=== PATIENT | male | born 1960 | race Caucasian/White ===

== ENCOUNTER → 2016-06-21 | Outpatient (REF) | payer OTHER ==
[2016-06-21 11:33] LABS: BASO % 0.7 % (0.0-1.0); EOS # 0.4 K/mm3 (0.0-0.50); EOS % 6.5 % (0.0-3.0); LARGE UNSTAINED CELL # 0.1 K/mm3 (0.0-0.4); LARGE UNSTAINED CELL % 1.4 % (0.0-4.0); LYMPH # 1.7 K/mm3 (1.5-4.5); LYMPH % 24.9 % (24.0-44.0); MEAN CORPUSCULAR HEMOGLOBIN 32.7 pg (27.0-33.0); MEAN CORPUSCULAR HGB CONC 33.5 g/dl (32.0-36.5); MEAN CORPUSCULAR VOLUME 97.6 fl (80.0-96.0); MONO # 0.4 K/mm3 (0.0-0.8); MONO % 5.7 % (0.0-5.0); NEUTROPHILS # 4.1 K/mm3 (1.8-7.7); NEUTROPHILS % 60.8 % (36.0-66.0); PLATELET COUNT, AUTOMATED 357 k/mm3 (150-450); RED CELL DISTRIBUTION WIDTH 12.5 % (11.5-14.5); WHITE BLOOD COUNT 6.7 K/mm3 (4.0-10.0)
[2016-06-21 12:01] LABS: ALBUMIN 3.6 GM/DL (3.2-5.2); ALKALINE PHOSPHATASE 63 U/L (45-117); ALT/SGPT 29 U/L (12-78); ANION GAP 9 MEQ/L (8-16); AST/SGOT 18 U/L (15-37); BLOOD UREA NITROGEN 18 MG/DL (7-18); CALCIUM LEVEL 9.4 MG/DL (8.5-10.1); CARBON DIOXIDE LEVEL 28 MEQ/L (21-32); CHLORIDE LEVEL 104 MEQ/L (98-107); CREATININE FOR GFR 0.92 MG/DL (0.70-1.30); GLOMERULAR FILTRATION RATE > 60.0 (>56); GLUCOSE, FASTING 95 MG/DL (70-105); POTASSIUM SERUM 4.1 MEQ/L (3.5-5.1); SODIUM LEVEL 141 MEQ/L (136-145); TOTAL PROTEIN 6.6 GM/DL (6.4-8.2)
== END ==
LOC: M LABNEURO 10:31
PROVIDERS: ATTEND Psychiatry & Neurology Neurology
DX: G12.21 Amyotrophic lateral sclerosis (principal)

== ENCOUNTER → 2016-08-07 | Outpatient (CLI) | payer BC, OTHER ==
[~2016-08-07] MED LIST: E-Z PAQUE 60% w/v SUSP 355ML BOTTLE As Ordered ONE; VARIBAR NECTAR 40% w/v 240ML SUSP BTL As Ordered ONE; VARIBAR PUDDING 40% w/v 230ML TUBE As Ordered ONE
--- NOTE | 2016-08-08 09:30 | REP ---
Clinical: Dysphasia. History of ALS. Technique: Real time fluoroscopic evaluation in conjunction with speech pathology. Findings: Examination demonstrates abnormal head lifting movement during deglutition which may be better detailed on speech pathologist's report. No evidence for aspiration. Surrounding soft tissues and osseous structures are normal. Total fluoroscopic time 2 minutes 49 seconds . Impression: No evidence for aspiration. Abnormal head lifting movements during deglutition. Signed by Hari Chatman MD 08/08/2016 09:21 A
== END ==
LOC: M ST 10:04
PROVIDERS: ATTEND Obstetrics & Gynecology Hospice and Palliative Medicine
DX: R13.10 Dysphagia, unspecified (principal)

== ENCOUNTER → 2016-10-13 | Day surgery (SDC) | payer MEDICARE, BC, OTHER ==
[~2016-10-13] VITALS: Ht 180.3 cm; Wt 56.2 kg
[~2016-10-13] MED LIST changes: +AMPICILLIN SOD/SULBACTAM SOD 3 GM in D5W MINI-BAG PLUS 100 ML IV ONE; +BUPIVACAINE HCL 0.25% 30 ML VIAL As Ordered ONE; -E-Z PAQUE 60% w/v SUSP 355ML BOTTLE As Ordered ONE; +ETOMIDATE INJ 20MG/10ML VIAL As Ordered ONE; +GLYC1TAB18 PO; +GLYCOPYRROLATE INJ 0.2 MG/ML 2 ML VIAL As Ordered ONE; +KETOROLAC 30 MG/ML VIAL (J1885) As Ordered ONE; +KETOROLAC 30 MG/ML VIAL (J1885) IV PRN; +LABETALOL HCL 100 MG/20 ML VIAL As Ordered ONE; +LIDOCAINE 1% SDV INJ 30 ML VIAL As Ordered ONE; +LIDOCAINE 2% INJ 100 MG/5 ML SDV (FOR ANES.) As Ordered ONE; +LR 1,000 ML IV ONE; +LR 1,000 ML IV SCH; +MIDAZOLAM INJ 2 MG/2 ML VIAL (J2250) As Ordered ONE; +NEOSTIGMINE 1MG/ML 5 ML SYRINGE (J2710) As Ordered ONE; +NORCO, ANEXSIA 5/325MG TABLET (HYDROcodone/ACETAMINOPHEN) PO PRN; +ONDANSETRON 4MG/2ML VIAL (J2405) As Ordered ONE; +ONDANSETRON 4MG/2ML VIAL (J2405) IV PRN; +PERCOCET 5MG/325MG TAB As Ordered ONE; +PERCOCET 5MG/325MG TAB PO PRN; +PERCOCET PO; +PROPOFOL 200 MG/20 ML VIAL As Ordered ONE; +RILU1TAB2 PO; +ROCURONIUM BROMIDE 50 MG/5 ML VIAL As Ordered ONE; +SERT25TA PO; -VARIBAR NECTAR 40% w/v 240ML SUSP BTL As Ordered ONE; -VARIBAR PUDDING 40% w/v 230ML TUBE As Ordered ONE; +fentaNYL 100 MCG/2 ML INJECTION (J3010) As Ordered ONE; +fentaNYL 100 MCG/2 ML INJECTION (J3010) IV PRN
[2016-10-13 13:05] VITALS: BP 127/71
--- NOTE | 2016-11-07 11:27 | RO ---
DATE OF PROCEDURE: 10/13/2016 PREOPERATIVE DIAGNOSES: 1. History of amyotrophic lateral sclerosis (ALS). 2. Dysphagia. POSTOPERATIVE DIAGNOSES: 1. History of amyotrophic lateral sclerosis. 2. Dysphagia. PROCEDURE DONE: Upper GI endoscopy and placement of a TORRES-BARTON button feeding tube. SURGEON: Dr. Royce Veliz SAND CARRIER: Андрей Rucker DO ANESTHESIA: General anesthesia ESTIMATED BLOOD LOSS: 5 mL. COMPLICATIONS: None. DRAINS: None. REMARKS: The patient tolerated the procedure well. DESCRIPTION OF PROCEDURE: Procedure note: Mr. Herring is a 55-year-old gentleman with a fairly advanced diagnosis of ALS having problems eating secondary to dysphagia and suspected to be having some aspiration. He is brought in today for placement of a feeding tube. The patient was given 3 grams of Ancef preoperatively. He was brought to the operating room, laid supine on the table. Compression boots placed for deep venous thrombosis (DVT) prophylaxis. General endotracheal anesthesia started without any complication. His abdomen prepped and draped in the usual sterile fashion. Dr. Rucker performed the upper endoscopy. The visualized portions of the esophagus and the stomach, as well as the pyloric opening, appears within normal limits. No contraindications found on placement of the feeding tube. Using transillumination, the stomach was insufflated, and its location in the upper abdomen located. The area was then infiltrated with local anesthesia using 1% lidocaine. An 18-gauge needle was located and inserted into the stomach, visualized via the endoscope. A guidewire was threaded through in a usual modified Seldinger technique. T fasteners were placed at four positions around the guidewire placement to lift the stomach. This was then secured into the abdomen. We then sequentially dilated the tract of the skin and subcutaneous tissue and the fascia, as well as the stomach opening. The TORRES-BARTON button measuring device was placed, and we measured a tract of 2.5 cm. The appropriate sized TORRES-BARTON button was chosen. The peel-away sheath was then inserted through to the stomach. The TORRES-BARTON button placed into the stomach with a peel-away sheath. Unfortunately, towards the end, when we removed the peel-away sheath, the feeding tube retracted back into the subcutaneous tissue, whereby we lost the tract. There was some release of gas with pneumoperitoneum. We decompressed the abdomen with a Veress needle. Once the abdomen was deflated, we located back the stomach opening and again sequentially dilated the area. A new TORRES-BARTON button was then placed. This time around, we inflated the TORRES-BARTON button after removing the peel-away sheath. Its location to the stomach was confirmed; and likewise, we tested the feeding tube. Noted this to be working adequately. The remnant pneumoperitoneum was again released with the Veress needle. The T fasteners were secured into the abdomen. Dry gauze placed around the TORRES-BARTON button. The patient was then promptly awakened, extubated, brought to the recovery room stable.
== END | disposition home or self-care (01) ==
LOC: M SDC 09:50
PROVIDERS: ATTEND Surgery
DX: G12.21 Amyotrophic lateral sclerosis (principal); R13.10 Dysphagia, unspecified; T88.59XD Other complications of anesthesia, subsequent encounter; R53.1 Weakness; R29.898 Other symptoms and signs involving the musculoskeletal system; F17.290 Nicotine dependence, other tobacco product, uncomplicated; R94.2 Abnormal results of pulmonary function studies; R05 Cough; R06.09 Other forms of dyspnea; Z79.899 Other long term (current) drug therapy
CPT/HCPCS: 43246; J1885; J2250; J2405; J2710; J3010

== ENCOUNTER → 2017-02-11 | Outpatient (REF) | payer MEDICARE, BC, OTHER ==
[~2017-02-11] MED LIST changes: -AMPICILLIN SOD/SULBACTAM SOD 3 GM in D5W MINI-BAG PLUS 100 ML IV ONE; -BUPIVACAINE HCL 0.25% 30 ML VIAL As Ordered ONE; -ETOMIDATE INJ 20MG/10ML VIAL As Ordered ONE; -GLYCOPYRROLATE INJ 0.2 MG/ML 2 ML VIAL As Ordered ONE; -KETOROLAC 30 MG/ML VIAL (J1885) As Ordered ONE; -KETOROLAC 30 MG/ML VIAL (J1885) IV PRN; -LABETALOL HCL 100 MG/20 ML VIAL As Ordered ONE; -LIDOCAINE 1% SDV INJ 30 ML VIAL As Ordered ONE; -LIDOCAINE 2% INJ 100 MG/5 ML SDV (FOR ANES.) As Ordered ONE; -LR 1,000 ML IV ONE; -LR 1,000 ML IV SCH; -MIDAZOLAM INJ 2 MG/2 ML VIAL (J2250) As Ordered ONE; -NEOSTIGMINE 1MG/ML 5 ML SYRINGE (J2710) As Ordered ONE; -NORCO, ANEXSIA 5/325MG TABLET (HYDROcodone/ACETAMINOPHEN) PO PRN; -ONDANSETRON 4MG/2ML VIAL (J2405) As Ordered ONE; -ONDANSETRON 4MG/2ML VIAL (J2405) IV PRN; -PERCOCET 5MG/325MG TAB As Ordered ONE; -PERCOCET 5MG/325MG TAB PO PRN; -PROPOFOL 200 MG/20 ML VIAL As Ordered ONE; -ROCURONIUM BROMIDE 50 MG/5 ML VIAL As Ordered ONE; -fentaNYL 100 MCG/2 ML INJECTION (J3010) As Ordered ONE; -fentaNYL 100 MCG/2 ML INJECTION (J3010) IV PRN
== END ==
LOC: M LAB REF 14:06
PROVIDERS: ATTEND Physician Assistant
DX: L02.511 Cutaneous abscess of right hand (principal); B96.20 Unspecified Escherichia coli [E. coli] as the cause of diseases classified elsewhere

== ENCOUNTER → 2017-02-20 | Outpatient (REF) | payer MEDICARE, OTHER ==
[2017-02-20 17:43] LABS: BASO % 0.7 % (0.0-1.0); EOS # 0.3 K/mm3 (0.0-0.50); EOS % 3.7 % (0.0-3.0); LARGE UNSTAINED CELL # 0.1 K/mm3 (0.0-0.4); LARGE UNSTAINED CELL % 1.8 % (0.0-4.0); LYMPH # 1.8 K/mm3 (1.5-4.5); LYMPH % 23.3 % (24.0-44.0); MEAN CORPUSCULAR HEMOGLOBIN 32.7 pg (27.0-33.0); MEAN CORPUSCULAR HGB CONC 33.4 g/dl (32.0-36.5); MEAN CORPUSCULAR VOLUME 97.7 fl (80.0-96.0); MONO # 0.4 K/mm3 (0.0-0.8); MONO % 5.3 % (0.0-5.0); NEUTROPHILS % 65.2 % (36.0-66.0); PLATELET COUNT, AUTOMATED 266 k/mm3 (150-450); RED CELL DISTRIBUTION WIDTH 12.5 % (11.5-14.5); WHITE BLOOD COUNT 7.6 K/mm3 (4.0-10.0)
[2017-02-20 18:59] LABS: ALBUMIN 4.2 GM/DL (3.2-5.2); ALBUMIN/GLOBULIN RATIO 1.45 (1.00-1.93); ALKALINE PHOSPHATASE 62 U/L (45-117); ALT/SGPT 33 U/L (12-78); ANION GAP 6 MEQ/L (8-16); AST/SGOT 20 U/L (15-37); BILIRUBIN,TOTAL 0.8 MG/DL (0.2-1.0); BLOOD UREA NITROGEN 26 MG/DL (7-18); CALCIUM LEVEL 9.3 MG/DL (8.5-10.1); CARBON DIOXIDE LEVEL 32 MEQ/L (21-32); CHLORIDE LEVEL 99 MEQ/L (98-107); CREATININE FOR GFR 0.69 MG/DL (0.70-1.30); GLOMERULAR FILTRATION RATE > 60.0 (>56); GLUCOSE, FASTING 89 MG/DL (70-105); SODIUM LEVEL 137 MEQ/L (136-145); TOTAL PROTEIN 7.1 GM/DL (6.4-8.2)
== END ==
LOC: M LABNEURO 16:48
PROVIDERS: ATTEND Psychiatry & Neurology Neurology
DX: G12.21 Amyotrophic lateral sclerosis (principal)